=== PATIENT | male | born 1960 | race Caucasian/White ===

== ENCOUNTER 2019-07-11 18:00 | Emergency (ER) | payer OTHER ==
--- NOTE | 2019-07-11 18:13 | EDM.PDOC ---
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 States his only oral intake was an apple this morning as he left [facility] roughly about 0900 hours. Onset: Today Duration: Minutes: - Related Data Allergies Allergy/AdvReac Type Severity Reaction Status Date / Time Penicillins Allergy Other Verified 07/11/19 18:09 Home Meds: Home Meds . 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, reattached with good function) Neurological History: Reports: None Psychiatric History: Reports: None Endocrine/Metabolic History: Reports: None, Other (See Below) (Prediabetic, per his private clinic.) Hematologic History: Reports: None Immunologic History: Reports: None Oncologic (Cancer) History: Reports: None Dermatologic History: Reports: None - Past Surgical History Head Surgeries/Procedures: Reports: None HEENT Surgical History: Reports: Adenoidectomy, Oral Surgery (Teeth), Tonsillectomy Cardiovascular Surgical History: Reports: Coronary Artery Stent Respiratory Surgical History: Reports: None GI Surgical History: Reports: None Endocrine Surgical History: Reports: None Social & Family History - Family History Family Medical History: Noncontributory ED ROS GENERAL - Review of Systems Review Of Systems: See Below Constitutional: Reports: Weakness, Diaphoresis HEENT: Reports: No Symptoms Respiratory: Reports: No Symptoms Cardiovascular: Reports: No Symptoms Endocrine: Reports: No Symptoms GI/Abdominal: Reports: No Symptoms : Reports: No Symptoms Musculoskeletal: Reports: No Symptoms Skin: Reports: No Symptoms Neurological: Reports: No Symptoms Psychiatric: Reports: No Symptoms Hematologic/Lymphatic: Reports: No Symptoms Immunologic: Reports: No Symptoms ED EXAM, GENERAL - Physical Exam Exam: See Below General Appearance: Alert, WD/WN, No Apparent Distress, Other (Mild pallor) Ears: Normal External Exam, Normal Canal, Hearing Grossly Normal, Normal TMs Nose: Normal Inspection, Normal Mucosa, No Blood Throat/Mouth: Normal Inspection, Normal Lips, Normal Teeth, Normal Gums, Normal Oropharynx, Normal Voice, No Airway Compromise Head: Atraumatic, Normocephalic Neck: Normal Inspection, Supple, Non-Tender, Full Range of Motion Respiratory/Chest: No Respiratory Distress, Lungs Clear, Normal Breath Sounds, No Accessory Muscle Use, Chest Non-Tender Cardiovascular: Normal Peripheral Pulses, Regular Rate, Rhythm, No Edema, No Gallop, No JVD, No Murmur, No Rub GI/Abdominal: Normal Bowel Sounds, Soft, Non-Tender, No Organomegaly, No Distention, No Abnormal Bruit, No Mass (Male) Exam: Deferred Rectal (Males) Exam: Deferred Back Exam: Full Range of Motion Extremities: Normal Inspection, Normal Range of Motion, Non-Tender, No Pedal Edema Neurological: Alert, Oriented, CN II-XII Intact, Normal Cognition, Normal Gait, Normal Reflexes, No Motor/Sensory Deficits Psychiatric: Normal Affect, Normal Mood Skin Exam: Warm, Dry, Intact, Normal Color, No Rash Lymphatic: No Adenopathy EKG INTERPRETATION EKG Date: 07/11/19 Time: 18:35 Rhythm: NSR Rate (Beats/Min): 70 [place]: LAD-Left [place] Deviation P-Wave: Present QRS: Normal ST-T: Normal QT: Normal Comparison: NA - No Prior EKG Course - Vital Signs Last Recorded V/S: Last Vital Signs Temp 37.1 C 07/11/19 18:09 Pulse 86 07/11/19 18:09 Resp 18 07/11/19 18:09 BP 106/48 L 07/11/19 18:09 Pulse Ox 96 07/11/19 18:09 - Orders/Labs/Meds Orders: Active Orders 24 hr Category Date Time Status EKG Documentation Completion [RC] ASDIRECTED Care 07/11/19 18:12 Active Chest 1V Frontal [CR] Stat Exams 07/11/19 18:11 Ordered Sodium Chloride 0.9% [Normal Saline] 1,000 ml Med 07/11/19 18:45 Active IV ASDIRECTED EKG 12 Lead [EK] Routine Ther 07/11/19 18:12 Ordered Medication Orders Sodium Chloride (Normal Saline) 1,000 mls @ 250 mls/hr IV ASDIRECTED RUBY Last Admin: 07/11/19 19:08 Dose: 250 mls/hr Labs: Laboratory Tests 07/11/19 07/11/19 Range/Units 18:15 18:15 WBC 8.81 (5.00-10.00) 10^3/uL RBC 4.80 (4.50-6.00) 10^6/uL Hgb 14.7 (13.0-17.0) g/dL Hct 43.9 (40.0-52.0) % MCV 91.5 (82.0-92.0) fL MCH 30.6 (27.0-31.0) pg MCHC 33.5 (32.0-36.0) g/dL RDW 12.3 (11.5-14.5) % Plt Count 198 (150-400) 10^3/uL MPV 9.7 (7.4-10.4) fL Add Manual Diff Yes Neutrophils % (Manual) 88 H (50-70) % Lymphocytes % (Manual) 5 L (20-40) % Monocytes % (Manual) 6 (2-8) % Eosinophils % (Manual) 1 (1-3) % Absolute Neutrophils 7.7528 Lymphocytes # (Manual) 0.4405 Monocytes # (Manual) 0.5286 Eosinophils # (Manual) 0.0881 Sodium 145 (136-145) mmol/L Potassium 4.0 (3.3-5.3) mmol/L Chloride 102 (98-115) mmol/L Carbon Dioxide 25.5 (21.0-32.0) mmol/L Anion Gap 21.5 H (5-15) mmol/L BUN 23 (6-25) mg/dL Creatinine 1.02 (0.51-1.17) mg/dL Est Cr Clr Drug Dosing 77.98 mL/min Estimated GFR (MDRD) > 60 mL/min Glucose 125 H (75 - 99) mg/dL Calcium 7.3 L (8.7-10.3) mg/dL Total Bilirubin 1.1 H (0.2-1.0) mg/dL AST 11 L (15-37) U/L ALT 17 (12-78) U/L Alkaline Phosphatase 65 (46-116) IU/L Creatine Kinase 85 (26-276) U/L CK-MB (CK-2) 1.90 (0.00-4.30) ng/mL Troponin I 0.04 (0.00-0.070) ng/mL Total Protein 5.9 L (6.4-8.2) g/dL Albumin 3.38 (3.00-4.80) g/dL Meds: Medications Generic Name Dose Route Start Last Admin Trade Name [place] PRN Reason Stop Dose Admin Sodium Chloride 1,000 mls @ 250 mls/hr 07/11/19 18:45 07/11/19 19:08 Normal Saline IV 250 mls/hr ASDIRECTED RUBY Administration - Radiology Interpretation Free Text/Narrative:: View x-ray shows no evidence of hemopneumothorax, no infiltrate present. Cardiac silhouette upper limits normal mild rotation noted in positioning. Departure - Departure Time of Disposition: 19:31 Disposition: Home, Self-Care 01 Condition: Good Clinical Impression: Syncope and collapse - Discharge Information *PRESCRIPTION DRUG MONITORING PROGRAM REVIEWED*: Not Applicable *COPY OF PRESCRIPTION DRUG MONITORING REPORT IN PATIENT PRINCE: Not Applicable Instructions: Syncope, [id number] Referrals: Thea Quinonez MD [Primary Care Provider] - Forms: ED Department Discharge Additional Instructions: You need to rest tonight food intake and water. Make sure to increase your fluid intake to avoid dehydration. Continue your medications as directed. Contact your provider once returning home to advise them of the incident, with likely cause of poor oral intake, stress, and warm environment. Return to the emergency department if symptoms should recur during her stay in the [facility]. Sepsis Event Note - Focused Exam Vital Signs: Vital Signs Temp Pulse Resp BP Pulse Ox 07/11/19 18:09 37.1 C 86 18 106/48 L 96 Date Exam was Performed: 07/11/19 Time Exam was Performed: 19:18 - Problem List & Annotations (1) Syncope and collapse SNOMED Code(s): 652527878 Code(s): R55 - SYNCOPE AND COLLAPSE Status: Acute Priority: High Current Visit: Yes - Problem List Review Problem List Initiated/Reviewed/Updated: Yes - My Orders Last 24 Hours: My Active Orders 07/11/19 18:11 Chest 1V Frontal [CR] Stat 07/11/19 18:12 EKG Documentation Completion [RC] ASDIRECTED EKG 12 Lead [EK] Routine 07/11/19 18:45 Sodium Chloride 0.9% [Normal Saline] 1,000 ml IV ASDIRECTED - Assessment/Plan Last 24 Hours: My Active Orders 07/11/19 18:11 Chest 1V Frontal [CR] Stat 07/11/19 18:12 EKG Documentation Completion [RC] ASDIRECTED EKG 12 Lead [EK] Routine 07/11/19 18:45 Sodium Chloride 0.9% [Normal Saline] 1,000 ml IV ASDIRECTED Plan: You need to rest tonight food intake and water. Make sure to increase your fluid intake to avoid dehydration. Continue your medications as directed. Contact your provider once returning home to advise them of the incident, with likely cause of poor oral intake, stress, and warm environment. Return to the emergency department if symptoms should recur during her stay in the [facility].
[2019-07-11] MEDS ORDERED: Sodium Chloride 0.9% 1,000 ML IV SCH (18:45)
[2019-07-11 19:09] LABS: ANION GAP 21.5 mmol/L (5-15); CHLORIDE,CL 102 mmol/L (98-115); SODIUM,NA 145 mmol/L (136-145)
--- NOTE | 2019-07-11 19:32 | CR ---
[id number] RAD/RAD Chest PA or AP 1V EXAM: RAD Chest PA or AP 1V INDICATION: ECTOPY, SYNCOPE COMPARISON: None. DISCUSSION: Cardiomediastinal silhouette is normal in size and contour. No infiltrate, effusion, pneumothorax, or edema. IMPRESSION: No acute cardiopulmonary abnormality. Man Gordillo DO 07/11/19 1930 Thank you for allowing us to participate in the care of your patient.
== END 2019-07-11 19:35 | disposition home or self-care (01) ==
LOC: KA.ED 18:00
DX: R55 Syncope and collapse (principal); I10 Essential (primary) hypertension; E78.00 Pure hypercholesterolemia, unspecified; Z88.0 Allergy status to penicillin
CPT/HCPCS: 36415; 71045; 80053; 82550; 82553; 84484; 85025; 93005; 99285; J7030